=== PATIENT | male | born 1985 | race Caucasian/White ===

== ENCOUNTER 2018-10-09 14:30 | Emergency (ER) | payer OTHER, SELFPAY ==
[2018-10-09 14:32] VITALS: BP 130/67; PULSE 80; RESP 20; TEMP 36.4; O2SAT 99; BMI 21.6
[2018-10-09 14:44] VITALS: BP 130/67; PULSE 72; RESP 17; O2SAT 100
[2018-10-09] MEDS: Ondansetron 4 MG/2 ML Vial IV (15:02)
[2018-10-09] MEDS: Morphine 4 MG/ML Syringe IV ×2 (15:02→16:38)
--- NOTE | 2018-10-09 15:25 | RAD_ITS ---
STUDY: X-RAY - LEFT HAND REASON FOR EXAM: Male, 33 years old. Crush injury of the fifth digit TECHNIQUE: 3 view(s) of the hand. COMPARISON: None. FINDINGS: Normal radiocarpal articulation. Normal distal radioulnar joint. Normal visualized carpal bones. Normal carpal articulations Normal carpometacarpal articulation of the thumb. Normal second through fifth carpometacarpal joints. Normal metacarpi. Normal metacarpophalangeal joint of the thumb. Normal interphalangeal joint of the thumb. Normal proximal and distal phalanges of the thumb. Normal metacarpophalangeal joints of the second through fifth fingers. Normal proximal and distal interphalangeal joints of the second through fifth fingers. Transverse fracture of the fifth distal phalanx tuft with approximately one half shaft's width displacement. Soft tissue swelling and formerly noted along the tip and ulnar border. RAD/Hand Min 3 Views IMPRESSION: 1. Distal fifth phalanx moderately displaced fracture with soft tissue injury/laceration. Electronically Signed: Stas Guan MD at 16:16 EST , Service support ,
[2018-10-09] MEDS: Diphth,Pertuss(Acell),Tet Vac 0.5 ML Vial IM (15:26)
[2018-10-09] MEDS: Cefazolin 1 GM/50 ML BAG IV (15:26)
[2018-10-09 15:37] VITALS: PULSE 71; RESP 14; O2SAT 98
[2018-10-09 17:06] VITALS: PULSE 103; RESP 17; O2SAT 98
--- NOTE | 2018-10-09 17:24 | ED.DCSUM_ITS ---
- ER Visit Summary Date of Service: 10/09/18 Chief Complaint: Left small finger injury History of Present Illness: The patient is a 33 M presenting with left small finger injury. Patient was at [facility] when a 2 x 4 fell and hit his left small finger. He sustained a laceration to the left small digit. Last tetanus is unknown. He is right-handed. Physical Examination: Vitals are stable. Patient is afebrile. Alert no acute distress. HEENT exam is unremarkable. Lungs are clear and equal bilaterally. Heart is regular rate and rhythm. Extremities irregular 1.5 cm laceration left small digit dorsal aspect just proximal to the nailbed. Skin is warm and dry. No focal neurologic deficit. Remainder of exam is unremarkable. Emergency Department Course and Treatment: Patient was given tetanus IM, Ancef IV. He was given morphine and Zofran IV. Left hand x-ray shows distal fifth phalanx moderately displaced fracture with soft tissue injury/laceration. Digital block was performed. Laceration was repaired under sterile conditions. Irrigated with copiously with saline. 3, 5-0 simple sutures were placed. He was put in an aluminum foam splint. He was given Keflex and percocet. Advised to follow-up with Dr. Shaw. Advised return to ED if worsening complaints. Disposition: Discharge home Impression: Left small digit laceration, distal phalanx fracture, laceration repair This note was generated with [email or web address] dictation software. It may contain incorrect words, spelling, and punctuation that were not noted in review of the chart prior to signing ED Disposition - Plan for ED Patient: Instructions: ED Fx Finger Open Prescriptions: Oxycodone HCl/Acetaminophen [Percocet 5/325] 1 tablet PO Q6H PRN PRN 3 Days #12 tablet PRN Reason: Pain Cephalexin [Keflex] 500 mg PO Q6 #40 capsule Referrals: Lavon Shaw MD [STAFF PHYSICIAN] -
--- NOTE | 2018-10-09 17:28 | ED.DEP ---
ED Disposition - Plan for ED Patient: Instructions: ED Fx Finger Open Prescriptions: Oxycodone HCl/Acetaminophen [Percocet 5/325] 1 tablet PO Q6H PRN PRN 3 Days #12 tablet PRN Reason: Pain Cephalexin [Keflex] 500 mg PO Q6 #40 capsule Referrals: Lavon Shaw MD [STAFF PHYSICIAN] -
== END 2018-10-09 18:37 | disposition home or self-care (01) ==
PROVIDERS: Emergency Provider Emergency Medicine
DX: S62.637A Displaced fracture of distal phalanx of left little finger, initial encounter for closed fracture (principal); S61.217A Laceration without foreign body of left little finger without damage to nail, initial encounter; W20.8XXA Other cause of strike by thrown, projected or falling object, initial encounter; Y93.9 Activity, unspecified; Y92.512 Supermarket, store or market as the place of occurrence of the external cause; Y99.9 Unspecified external cause status; Z23 Encounter for immunization; Z72.0 Tobacco use
CPT/HCPCS: 12001; 73130; 90715; 96365; 96375; 96376; 99285; J7050; A4216; J2405

== ENCOUNTER → 2020-10-03 08:54 | Outpatient (CLI) | payer OTHER, SELFPAY ==
[2020-10-03 10:18] LABS: Absolute Lymphocyte Count 1.57 X10^3/uL (0.83-4.51); Absolute Neutrophil Count 5.9 X10^3/uL (2.0-7.7); Basophil# 0.02 X10^3/uL; Basophil% 0.2 % (0-1); Eosinophil# 0.07 X10^3/uL; Eosinophils% 0.9 % (0-5); Hematocrit 49.3 % (40-54); Hemoglobin 16.1 g/dL (13.0-16.5); Lymphocyte # 1.57 X10^3/ul (4.0); Lymphocyte % 19.2 % (19-41); Mean Corp Hgb Conc 32.7 g/dL (32-36); Mean Corpuscular Hgb 28.9 pg (27.0-32.0); Mean Corpuscular Volume 88.4 fL (80-94); Mean Platelet Vol. 10.6 fl (6.2-12.0); Monocyte# 0.62 X10^3/uL; Monocyte% 7.6 % (0-10); NRBC Flagged by Analyzer 0 % (0-5); Neutrophil # 5.88 X10^3/uL (2.7-7.7); Neutrophil % 71.9 % (47-70); Platelet Count 253 K/mm3 (150-450); RBC Distribution Width CV 13.5 % (11.6-14.6); RBC Distribution Width SD 43.6 fl (35.1-43.9); Red Blood Count 5.58 M/mm3 (4.6-6.2); White Blood Count 8.2 K/mm3 (4.4-11.0)
[2020-10-03 11:07] LABS: ALB/GLOB Ratio 1.7 RATIO (0.9-2.4); AST(SGOT) 15 U/L (15-37); Alanine Aminotransfer ALT/SGPT 25 U/L (16-61); Albumin, Serum 4.8 g/dL (3.2-5.0); Alkaline Phosphatase 63 U/L (45-117); Anion Gap 10 (5-15); BUN 12 mg/dL (7-18); BUN/Creat Ratio 11.1 RATIO (10-20); Calcium,Total 9.3 mg/dL (8.5-10.1); Chloride 106 mmol/L (98-107); Cholesterol 208 mg/dL (200); Creatinine, Serum 1.08 mg/dL (0.70-1.30); EST Glomerular Filtration Rate 82 mL/min (>60); Est Glom Filt Rate - Afr Amer 99 mL/min (>60); Globulin 2.8 g/dL (2.2-4.2); Glucose 101 mg/dL (74-106); High Density Lipoprotein 46 mg/dL; Potassium 3.8 mmol/L (3.5-5.1); Protein, Total 7.6 g/dL (6.4-8.2); Sodium Level 140 mmol/L (136-145); Thyroid Stim Hormone (TSH) 2.06 uIU/mL (0.358-3.74); Triglycerides 94 mg/dL; Very Low Density Lipoprotein 19 mg/dL (5-40)
== END ==
PROVIDERS: PCP Family Medicine; Referring Provider Family Medicine; Visit Provider Family Medicine
DX: Z00.00 Encounter for general adult medical examination without abnormal findings (principal)
CPT/HCPCS: 36415; 80053; 80061; 84443; 85025

== ENCOUNTER 2021-10-20 10:33 | Emergency (ER) | payer OTHER, SELFPAY ==
[2021-10-20 10:35] VITALS: BP 144/74; PULSE 88; RESP 17; TEMP 35.6; O2SAT 98; BMI 23.7
--- NOTE | 2021-10-20 11:30 | EX.ED.UPPERE ---
HPI History of Present Illness HPI Narrative: Patient presents with a laceration to his left hand. Patient states he was using a utility knife today. Patient states he was cutting a piece of conduit when the knife slipped and cut his left hand. Patient is right-hand dominant. Patient describes his pain is aching. Patient states nothing makes it better nothing makes it worse. Patient denies any paresthesias or weakness. Patient states his last tetanus was approximately 4 years ago. Patient denies any other injuries. Chief Complaint: Laceration Informant: patient Occured/Mechanism Comment: Cut with utility knife Onset/Context/Timing Context: Sudden Onset Timing: Continuous Quality of Pain: Aching Location: Left hand on the thenar eminence Current Severity: Mild Worsened by: Nothing Relieved by: Nothing Associated Symptoms Associated Symptoms: Negative for Parasthesia, Weakness and Loss of Funtion Narrative Tetanus Immunization: <[address] [facility] Medical History (Updated 10/20/21 @ 13:[address] Gustavo Akbar DO) Anxiety Home Medications cephalexin 500 mg PO Q6 #40 capsule 10/09/18 [Rx Last Taken Unknown] sertraline 50 mg PO DAILY 10/20/21 [History Last Taken Unknown] Allergy/AdvReac Type Severity Reaction Status Date / Time No Known Allergies Allergy Verified 10/20/21 10:34 Surgical History no surgical history no surgical history Social History (Updated 10/20/21 @ 11:[address] Gustavo Akbar DO) Smoking Status: Former smoker ROS ROS ED Constitutional Constitutional ED: Denies chills or fever(s) Eyes Eyes: Denies blurry vision or change in vision ENT ENT ED: Denies rhinorrhea or sore throat Cardiovascular Cardiovascular: Denies chest pain or palpitations Respiratory/Chest Respiratory/Chest: Denies cough or dyspnea Gastrointestinal Gastrointestinal: Denies nausea or vomiting Genitourinary Genitourinary ED: Denies dysuria or hematuria Musculoskeletal Musculoskeletal: Denies back pain or neck pain Integumentary Denies abscess or rash Neurologic Neurologic: Denies headache(s) or weakness Allergic/Immunologic Allergic/Immunologic ED: Denies mouth swelling or urticaria EXAM Physical Exam Const Vital Signs: 10/20/21 10:35 Temperature 96.0 F L Temperature Source Temporal Pulse Rate 88 Respiratory Rate 17 Blood Pressure 144/74 H Blood Pressure Mean 97 Pulse Ox 98 Oxygen Delivery Method Room Air Positive well nourished and well developed General Appearance ED: well developed and NAD HEENT Reports moist mucous membranes Neck full ROM and supple Extremity Extremity Narrative: There is a 1.5 cm full-thickness linear laceration over the palmar aspect of the left hand. There is no active bleeding. There are no foreign bodies noted. There is full range of motion of the IP, MP, and CMC joints of the left thumb. Strength is 5/5 in the radial, median, and ulnar areas. Strength is 5/5 in flexion extension of the IP and MP joints of the left thumb. Sensation was intact to light touch in all digits. Capillary refill was less than 2 seconds in all digits. Neuro oriented x3, CN's II-XII intact bilaterally, moves all extremities, no focal motor deficits and no sensory deficits noted Sensorium / Orientation: alert Psych mental status grossly normal MDM MDM MDM Narrative Medical decision making narrative: The wound was cleaned and irrigated with copious amounts of normal saline. The wound was anesthetized with 1% plain lidocaine locally. The wound was closed with 2 simple interrupted #4 -0 nylon sutures under sterile technique. Patient tolerated the procedure well. Bacitracin dressing was applied. Patient was instructed to keep the wound clean and dry. Patient was instructed to follow-up with his primary care physician in 5 to 7 days. Patient was instructed to watch for signs of infection. Patient understood and was agreeable with the plan. All questions were answered. Discharge Plan Triage Chief Complaint: Laceration ED Provider: Gustavo Akbar Dx/Rx/DC Orders Clinical Impression: Laceration of left hand Instructions: ED Laceration, Hand: All Closures Prescriptions: No Action cephalexin 500 MG capsule 500 mg PO Q6 Qty: 40 RF: 0 sertraline 50 mg tablet 50 mg PO DAILY RF: 0 Primary Care Provider: Dillon Sunshine Referrals: Dillon Sunshine MD [Primary Care Provider] - 7 Days for suture removal Disposition Disposition: Home, Self Care
[2021-10-20] MEDS: Lidocaine 1% (20 ml mdv) 20 ML Vial INFILT (14:11)
== END 2021-10-20 14:12 | disposition home or self-care (01) ==
PROVIDERS: Emergency Provider Emergency Medicine; PCP Family Medicine; Visit Provider Emergency Medicine
DX: S61.412A Laceration without foreign body of left hand, initial encounter (principal); Z87.891 Personal history of nicotine dependence; W26.0XXA Contact with knife, initial encounter; F41.9 Anxiety disorder, unspecified; Z79.899 Other long term (current) drug therapy
CPT/HCPCS: 12001; 99283

== ENCOUNTER → 2025-05-23 | Outpatient (CLI) | payer OTHER, SELFPAY ==
[2025-05-23 10:28] LABS: Hematocrit 47.8 % (40-54); Hemoglobin 16.1 g/dL (13.0-16.5); Mean Corp Hgb Conc 33.7 g/dL (32-36); Mean Corpuscular Volume 85.7 fL (80-94); Mean Platelet Vol. 10.3 fl (6.2-12.0); Platelet Count 268 K/mm3 (150-450); RBC Distribution Width CV 13.0 % (11.6-14.6); RBC Distribution Width SD 40.3 fl (35.1-43.9); Red Blood Count 5.58 M/mm3 (4.6-6.2); White Blood Count 4.8 K/mm3 (4.4-11.0)
[2025-05-23 11:11] LABS: AST(SGOT) 27 U/L (<=37); Alanine Aminotransfer ALT/SGPT 31 U/L (<=46); Albumin, Serum 5.1 g/dL (3.5-5.0); Alkaline Phosphatase 69 U/L (40-129); Anion Gap 12 (5-15); BUN 14 mg/dL (4-19); BUN/Creat Ratio 13.2 RATIO (10-20); Calcium,Total 9.8 mg/dL (7.6-11.0); Carbon Dioxide 23.7 mmol/L (21.0-32.0); Chloride 102 mmol/L (98-108); Cholesterol 262 mg/dL (<=200); Globulin 2.9 g/dL (2.2-4.2); Glucose 104 mg/dL (70-99); Low Density Lipoprotein Calc. 186 mg/dL; Potassium 4.0 mmol/L (3.3-5.1); Triglycerides 174 mg/dL; Very Low Density Lipoprotein 35 mg/dL (5-40); Vitamin D,25 Hydroxy 47.3 ng/mL (30-100); cholesterol:hdl ratio screen 6.33
== END | disposition home or self-care (01) ==
LOC: MTLAB 09:08
PROVIDERS: PCP Family Medicine; Referring Provider Family Medicine; Visit Provider Family Medicine
DX: Z00.00 Encounter for general adult medical examination without abnormal findings (principal); Z13.1 Encounter for screening for diabetes mellitus; E78.5 Hyperlipidemia, unspecified
CPT/HCPCS: 36415; 80053; 80061; 82306; 85027